=== PATIENT | female | born 1945 | race Caucasian/White ===

== ENCOUNTER 2020-01-02 06:58 | Day surgery (SDC) | payer MEDICARE ==
[~2020-01-02] VITALS: Ht 157.5 cm; Wt 51.4 kg
[~2020-01-02 06:58] MED LIST: ASCORBIC ACID500 MG PO; ATIVAN0.5 MG PO; COREG6.25 MG PO; COZAAR25 MG PO; CYANOCOBALAMIN; FERRETTS324 MG PO; GINKO; LOZOL1.25 MG PO; NIACIN100 MG; OYSCO 500+D TAB1 TAB PO; PAXIL20 MG PO; POTASSIUM99 M1; PREMARIN0.625 MG PO; PRILOSEC20 MG PO; VITAMIN A10000 UNIT; ZOCOR40 MG PO
[2020-01-02 07:39] LABS: HEMATOCRIT 39.3 % (36.0-48.0); MCHC 33.1 g/dL (31.0-37.0); MCV 90.8 fL (80.0-100.0); MEAN PLATELET VOLUME 9.1 fL (7.4-10.4); RBC 4.33 10x6/uL (4.00-5.40); RDW 12.5 % (11.5-14.5); WBC 4.4 10x3/uL (4.8-10.8)
[2020-01-02 07:51] LABS: CALC OSMOLALITY 278 mosm/kg (275-300); CALCIUM 9.3 mg/dL (8.5-10.1); CARBON DIOXIDE 31.1 mmol/L (21.0-32.0); CHLORIDE - SERUM 102 mmol/L (98-107); CREATININE - SERUM 0.6 mg/dL (0.6-1.3); GLUCOSE 97 mg/dL (74-106); POTASSIUM - SERUM 3.7 mmol/L (3.5-5.1); SODIUM 140 mmol/L (136-145); UREA NITROGEN 12 mg/dL (7-18); eGFR NON AFRICAN AMERICAN > 90 mL/min (90-120)
[2020-01-02] MEDS ORDERED: BAYER CHEWABLE81 MG PO (08:04)
[2020-01-02 08:14] VITALS: BP 130/63; Ht 157.5 cm; Wt 51.4 kg
[2020-01-02] MEDS ORDERED: HYDROCHLOROTH12.5 M1 PO (08:18)
--- NOTE | 2020-01-02 09:27 | NUR ---
PT IS ABLE TO TOLERATE COFFEE AND WATER AT THIS TIME. STATES NO PAIN/NEEDS AT THIS TIME.
--- NOTE | 2020-01-02 09:34 | NUR ---
DC INSTRUCTIONS GIVEN TO PT. STATES UNDERSTANDING. DC'D IV CATH FULLY INTACT. WILL CONTINUE TO MONITOR.
--- NOTE | 2020-01-02 09:53 | NUR ---
PT LEFT UNIT VIA WC AT [id number]
--- NOTE | 2020-01-03 09:55 | OP ---
PATIENT NAME: STEWART BROWN MEDICAL RECORD: [id number] :41 [facility]ATION:[facility] AD[facility]ION DATE: SURGEON: BALJINDER KENNY DO DATE OF OPERATION: 01/02/2020 PROCEDURE: Colonoscopy with polypectomy. INDICATIONS FOR PROCEDURE: Screening for colorectal cancer with a personal history of polyps. This is a 3-year recall. The patient also has a family history of colon cancer in her mother and a history of diverticulosis. SCOPE: Olympus video pediatric colonoscope. MEDICATIONS: Propofol 320 mg IV per anesthesia. WITHDRAWAL TIME: 11 minutes. ESTIMATED BLOOD LOSS: Minimal. COMPLICATIONS: None. FINDINGS: Informed consent was given. The patient was made comfortable with the above medication. After reaching an adequate level of sedation by slow IV push, the patient was placed on her left side. A digital rectal examination was performed and revealed some external hemorrhoids. The endoscope was then advanced under direct visualization through the rectum to the cecum, confirmed by the presence of the appendiceal orifice and ileocecal valve. The endoscope was slowly withdrawn and mucosa was carefully examined. There were 2 polyps visualized on today's examination. They were both benign-appearing and sessile. They ranged in size from 2-4 mm in diameter. They were both located in the ascending colon. They were both removed using hot forceps. There was evidence of mild diverticulosis involving the descending and sigmoid colon. Retroflexion was performed in the rectum with visualization of grade I internal hemorrhoids without bleeding. The endoscope was withdrawn from the patient. The patient tolerated the procedure well and there were no complications. IMPRESSION: 1. Two ascending polyps as described above. Removed using hot forceps. 2. Mild diverticulosis of the descending and sigmoid colon. 3. Small nonbleeding internal and external hemorrhoids. PLAN AND RECOMMENDATIONS: 1. Discharge home when recovery parameters are met. 2. Follow up biopsy specimen results. 3. High fiber diet. 4. Continue current medications. 5. Recall colonoscopy in 3-5 years for ongoing surveillance based on the patient's personal history of polyps and polyps removed on today's examination with family history. That will likely be the patient's last colonoscopy. TRANSINT:[id number] Voice Confirmation ID: [id number] DOCUMENT ID: [id number] OPERATIVE REPORT [id number] STEWART BROWN BALJINDER KENNY DO at 0955 CC: [id number] DICTATION DATE: 01/02/20 09 APPLICATION DEVELOPMENT INTERN: 01/02/20 1451 [facility] 01/02/20 [id number] [place] [address]
== END 2020-01-02 09:42 | disposition home or self-care (01) ==
LOC: D.OPS 06:58
PROVIDERS: Anesthesiology; ATTEND Internal Medicine Gastroenterology
DX: Z12.11 Encounter for screening for malignant neoplasm of colon (principal); Z80.0 Family history of malignant neoplasm of digestive organs; K57.32 Diverticulitis of large intestine without perforation or abscess without bleeding; Z86.010 Personal history of colon polyps